=== PATIENT | female | born 1945 | race African-American/Black ===

== ENCOUNTER 2016-04-07 17:42 | Emergency (ER) | payer MEDICARE, MEDICAID ==
[2016-04-07 18:14] LABS: #Basophils 0.1 thou/uL (0.0-0.2); #Eosinphils 0.1 thou/uL (0.0-0.7); #Lymphocytes 1.2 thou/uL (1.20-3.40); #Monocytes 0.5 thou/uL (0.11-0.59); #Neutrophils 8.5 thou/uL (1.40-6.50); %Basophils 0.5 % (0.0-1.0); %Eosinophils 0.9 % (0.0-10.0); %Monocytes 4.8 % (0.0-10.0); Hematocrit 34.9 % (36.0-47.0); Mean Platelet Volume 7.9 fL (7.4-10.4); Red Blood Cell (RBC) Count 4.39 mill/uL (4.20-5.40); White Blood Cell (WBC) Count 10.3 thou/uL (4.8-10.8)
[2016-04-07 18:21] LABS: ALT (SGPT) 13 U/L (0-55); AST (SGOT) 19 U/L (5-34); Alkaline Phosphatase 76 U/L (40-150); Anion Gap 17 mmol/L (10-20); Anisocytosis SLIGHT = 6-15 cells (100X) (0-5/hpf); BUN (Urea Nitrogen) 26 mg/dL (9.8-20.1); Bilirubin, Total 1.2 mg/dL (0.2-1.2); Calc. Creatinine Clearance 0 mL/min (70-130); Calcium 6.5 mg/dL (7.8-10.44); Carbon Dioxide 24 mmol/L (23-31); Chloride 104 mmol/L (98-107); Estimated GFR-MDRD 45; Globulin 3.8 g/dL (2.4-3.5); Poikilocytosis SLIGHT = 6-15 cells (100X) (0-5/hpf)
[2016-04-07 18:24] LABS: Troponin I 0.102 ng/mL (< 0.028)
[2016-04-07] MEDS ORDERED: Furosemide 100 MG/10 ML VIAL ONE (18:36)
[2016-04-07 19:10] LABS: Bilirubin Negative (Negative); Blood, Urine Trace (Negative); Glucose, Urine (Dipstick) Negative (Negative); Ketone, Urine Negative (Negative); Nitrite Positive (Negative); Protein, Urine (Dipstick) > or equal to 300 mg/dL (Neg-Trace)
[2016-04-07] MEDS ORDERED: Sodium Chloride 0.9% 100 ML ONE (19:22)
[2016-04-07] MEDS ORDERED: cefTRIAXone\\ROCEPHIN 1 GM VIAL ONE (19:22)
[2016-04-07 19:41] LABS: Bacteria/HPF 4+ HPF (None Seen); RBC/HPF 0-3 HPF (0-3); Squamous Epithelial 0-3 HPF (0-3); Transitional Epithelial 0-3 HPF (0-3)
[2016-04-07] MEDS ORDERED: Potassium Chloride 20 MEQ TAB ONE (19:51)
--- NOTE | 2016-04-07 21:10 | RAD ---
PORTABLE CHEST 04/07/16 An AP portable film at 1752 is compared with a 09/18/15 study. The heart is mildly enlarged. There is some mild congestion of the vessels and bilateral pleural eff usions. The findings suggest congestive heart failure. There is some relative increased density in t he left base which is probably all fluid, but a superimposed infiltrate could not be excluded. IMPRESSION: CHF. POS: HOME
== END 2016-04-07 19:55 | disposition short-term general hospital (02) ==
LOC: BURERS 17:42
DX: I50.9 Heart failure, unspecified (principal); E87.6 Hypokalemia; E78.5 Hyperlipidemia, unspecified; E11.9 Type 2 diabetes mellitus without complications; K21.9 Gastro-esophageal reflux disease without esophagitis; E78.00 Pure hypercholesterolemia, unspecified; I10 Essential (primary) hypertension; Z79.82 Long term (current) use of aspirin; Z79.899 Other long term (current) drug therapy
CPT/HCPCS: 51702; 71010; 80053; 81003; 81015; 82553; 83880; 84484; 85025; 87077; 87086; 87186; 93005; 94760; 96374; 96375; J0696; J1940; J7050

== ENCOUNTER 2016-10-17 16:53 | Emergency (ER) | payer MEDICARE, MEDICAID ==
[2016-10-17] MEDS ORDERED: Benzonatate 100 MG CAP ONE (18:21)
[2016-10-17] MEDS ORDERED: Azithromycin 250 MG TAB ONE (18:21)
--- NOTE | 2016-10-17 21:36 | RAD ---
CHEST TWO VIEWS 10/17/16 Comparison is made with prior studies dated 04/18/16 and 04/07/16. There is a streaky infiltrate in the right base adjacent to the diaphragm. This may represent an ear ly pneumonia. It is difficult to asses the left base. The heart is enlarged but no more so than befo re. I do not feel the vessel are congested at the moment. The AICD remains in place. IMPRESSION: Right basilar infiltrate. Code T POS: HOME
== END 2016-10-17 18:25 | disposition home or self-care (01) ==
LOC: BURERS 16:53
DX: J40 Bronchitis, not specified as acute or chronic (principal); I11.0 Hypertensive heart disease with heart failure; I50.9 Heart failure, unspecified; E11.9 Type 2 diabetes mellitus without complications; K21.9 Gastro-esophageal reflux disease without esophagitis; E78.5 Hyperlipidemia, unspecified; Z79.891 Long term (current) use of opiate analgesic; Z79.899 Other long term (current) drug therapy; Z79.82 Long term (current) use of aspirin
CPT/HCPCS: 71020

== ENCOUNTER 2017-02-08 14:32 | Emergency (ER) | payer MEDICARE, MEDICAID ==
--- NOTE | 2017-02-08 15:39 | RAD ---
PORTABLE CHEST: 02/08/17 HISTORY: Chest pain. COMPARISON: 04/18/16 exam. The heart size is enlarged. Pacemaker is present. There is increased interstitial changes in the base s consistent with some atelectasis. Given the differences in technique, I do not appreciate that ther e is a definite interval change since the prior exam. IMPRESSION: Cardiomegaly with some bibasilar lung change which appears fairly stable as compared to the previous 04/18/16 study. POS: ОЛЬГА
[2017-02-08 15:49] LABS: #Basophils 0.1 thou/uL (0.0-0.2); #Eosinphils 0.1 thou/uL (0.0-0.7); #Lymphocytes 1.5 thou/uL (1.20-3.40); #Monocytes 0.5 thou/uL (0.11-0.59); #Neutrophils 6.4 thou/uL (1.40-6.50); %Basophils 0.8 % (0.0-1.0); %Eosinophils 1.3 % (0.0-10.0); %Lymphocytes 17.3 % (21.0-51.0); %Monocytes 5.4 % (0.0-10.0); %Neutrophils 75.2 % (42.0-75.0); Mean Corpuscular HGB CONC 30.9 g/dL (32.0-36.0); Mean Corpuscular Hemoglobin 26.6 pg (27.0-31.0); Mean Corpuscular Volume 86.2 fl (81.0-99.0); Platelet Count 174 thou/uL (130-400); RBC Distribution Width 16.8 % (11.5-14.5); Red Blood Cell (RBC) Count 4.51 mill/uL (4.20-5.40); White Blood Cell (WBC) Count 8.5 thou/uL (4.8-10.8)
[2017-02-08 15:53] LABS: Bilirubin Negative (Negative); Blood, Urine Trace (Negative); Clarity Cloudy (Clear); Glucose, Urine (Dipstick) Negative (Negative); Leukocyte Moderate (Negative); Nitrite Negative (Negative); Protein, Urine (Dipstick) > or equal to 300 mg/dL (Neg-Trace); Specific Gravity, Urine 1.025 (1.005-1.030); Urobilinogen 0.2 mg/dL (0.2-1.0)
[2017-02-08 15:58] LABS: RBC/HPF 0-3 HPF (0-3)
[2017-02-08 15:59] LABS: Bacteria/HPF 3+ HPF (None Seen); Renal Epithelial 0-3 HPF (0-3)
[2017-02-08 16:01] LABS: Other Casts/LPF 0-3 COARSE GRAN LPF (0-3 Hyaline)
[2017-02-08 16:05] LABS: ALT (SGPT) 27 U/L (8-55); AST (SGOT) 26 U/L (5-34); Albumin 3.7 g/dL (3.4-4.8); Alkaline Phosphatase 86 U/L (40-150); Anion Gap 16 mmol/L (10-20); BUN (Urea Nitrogen) 24 mg/dL (9.8-20.1); Bilirubin, Total 0.6 mg/dL (0.2-1.2); Calc. Creatinine Clearance 0 mL/min (70-130); Calcium 9.1 mg/dL (7.8-10.44); Carbon Dioxide 19 mmol/L (23-31); Chloride 110 mmol/L (98-107); Estimated GFR-MDRD 42; Globulin 3.6 g/dL (2.4-3.5); Glucose 112 mg/dL (80-115); Lipase 26 U/L (8-78); Potassium 4.3 mmol/L (3.5-5.1); Protein, Total 7.3 g/dL (6.0-8.3); Sodium 141 mmol/L (136-145)
[2017-02-08 16:06] LABS: CKMB 1.3 ng/mL (0-6.6); Troponin I 0.046 ng/mL (< 0.028)
[2017-02-08] MEDS ORDERED: Furosemide 40 MG/4 ML VIAL ONE (16:48)
[2017-02-08] MEDS ORDERED: Nitroglycerin 2% Ointment 1 INCH/1 GM Packet ONE (16:48)
[2017-02-08] MEDS ORDERED: cefTRIAXone\\ROCEPHIN 2 GM VIAL ONE (17:15)
== END 2017-02-08 17:25 | disposition short-term general hospital (02) ==
LOC: BURERS 14:32
DX: I11.0 Hypertensive heart disease with heart failure (principal); I50.9 Heart failure, unspecified; R10.13 Epigastric pain; N39.0 Urinary tract infection, site not specified; E11.9 Type 2 diabetes mellitus without complications; K21.9 Gastro-esophageal reflux disease without esophagitis; E78.5 Hyperlipidemia, unspecified; Z79.891 Long term (current) use of opiate analgesic; Z79.82 Long term (current) use of aspirin; Z79.899 Other long term (current) drug therapy
CPT/HCPCS: 36415; 71010; 80053; 81003; 81015; 82553; 83690; 83880; 84484; 85025; 93005; 94760; 96374; 96375; J0696; J1940

== ENCOUNTER 2017-04-09 11:25 | Emergency (ER) | payer MEDICARE, MEDICAID | END 2017-04-09 11:47 | disposition home or self-care (01) | LOC: BURERS 11:25 | DX: M75.91 Shoulder lesion, unspecified, right shoulder (principal); I11.0 Hypertensive heart disease with heart failure; I50.9 Heart failure, unspecified; E11.9 Type 2 diabetes mellitus without complications; K21.9 Gastro-esophageal reflux disease without esophagitis; E78.5 Hyperlipidemia, unspecified; Z79.899 Other long term (current) drug therapy | CPT/HCPCS: 99283 ==

== ENCOUNTER 2017-05-01 16:12 | Emergency (ER) | payer MEDICARE ==
[2017-05-01 16:32] LABS: #Eosinphils 0.1 thou/uL (0.0-0.7); #Lymphocytes 1.3 thou/uL (1.20-3.40); #Monocytes 0.3 thou/uL (0.11-0.59); #Neutrophils 6.6 thou/uL (1.40-6.50); %Basophils 0.6 % (0.0-1.0); %Eosinophils 0.8 % (0.0-10.0); %Lymphocytes 15.7 % (21.0-51.0); Hemoglobin 10.3 g/dL (12.0-16.0); Mean Corpuscular HGB CONC 31.8 g/dL (32.0-36.0); Mean Corpuscular Hemoglobin 26.7 pg (27.0-31.0); Mean Corpuscular Volume 83.8 fl (81.0-99.0); Platelet Count 207 thou/uL (130-400); RBC Distribution Width 17.2 % (11.5-14.5); Red Blood Cell (RBC) Count 3.88 mill/uL (4.20-5.40); White Blood Cell (WBC) Count 8.4 thou/uL (4.8-10.8)
[2017-05-01 16:54] LABS: ALT (SGPT) 8 U/L (8-55); AST (SGOT) 12 U/L (5-34); Albumin 3.3 g/dL (3.4-4.8); Alkaline Phosphatase 72 U/L (40-150); Anion Gap 19 mmol/L (10-20); BUN (Urea Nitrogen) 25 mg/dL (9.8-20.1); Calc. Creatinine Clearance 0 mL/min (70-130); Calcium 8.1 mg/dL (7.8-10.44); Carbon Dioxide 25 mmol/L (23-31); Chloride 104 mmol/L (98-107); Estimated GFR-MDRD 43; Globulin 3.7 g/dL (2.4-3.5); Glucose 177 mg/dL (80-115); Sodium 145 mmol/L (136-145)
[2017-05-01 16:55] LABS: CKMB 0.7 ng/mL (0-6.6); Troponin I 0.055 ng/mL (< 0.028)
[2017-05-01] MEDS ORDERED: Furosemide 40 MG/4 ML VIAL ONE ×2 (17:47→17:48)
--- NOTE | 2017-05-01 21:17 | RAD ---
PORTABLE CHEST: 05/01/17 An AP portable film at 1614 is compared with a 03/21/17 study. Cardiomegaly is about the same as before. There is some basilar interstitial scarring in the right anais ng base. I cannot assess the left lung base on this portable study and cannot rule in or out patholog y here. An AICD is in place. While there is slight prominence of the vessels, it is not sufficient to confidently diagnose heart failure. IMPRESSION: Cardiomegaly and basilar interstitial changes, particularly on the right. POS: HOME
== END 2017-05-01 19:15 | disposition short-term general hospital (02) ==
LOC: BURERS 16:12
DX: I11.0 Hypertensive heart disease with heart failure (principal); I50.9 Heart failure, unspecified; E87.6 Hypokalemia; D50.9 Iron deficiency anemia, unspecified; E11.9 Type 2 diabetes mellitus without complications; K21.9 Gastro-esophageal reflux disease without esophagitis; E78.5 Hyperlipidemia, unspecified; Z79.899 Other long term (current) drug therapy
CPT/HCPCS: 71045; 82553; 83880; 84484; 85025; 93005; 94760; 96374; J1940

== ENCOUNTER 2017-07-23 21:00 | Emergency (ER) | payer MEDICARE ==
[2017-07-23 22:17] LABS: CKMB 1.1 ng/mL (0-6.6)
[2017-07-23 22:21] LABS: #Basophils 0.1 thou/uL (0.0-0.2); #Eosinphils 0.1 thou/uL (0.0-0.7); #Lymphocytes 1.9 thou/uL (1.20-3.40); #Monocytes 0.6 thou/uL (0.11-0.59); #Neutrophils 6.5 thou/uL (1.40-6.50); %Basophils 0.8 % (0.0-1.0); %Eosinophils 1.5 % (0.0-10.0); %Lymphocytes 21.1 % (21.0-51.0); %Neutrophils 70.6 % (42.0-75.0); Mean Corpuscular HGB CONC 31.7 g/dL (32.0-36.0); Mean Corpuscular Hemoglobin 24.9 pg (27.0-31.0); Mean Corpuscular Volume 78.5 fl (81.0-99.0); Mean Platelet Volume 7.1 fL (7.4-10.4); Platelet Count 229 thou/uL (130-400); RBC Distribution Width 19.4 % (11.5-14.5); Red Blood Cell (RBC) Count 3.62 mill/uL (4.20-5.40); White Blood Cell (WBC) Count 9.1 thou/uL (4.8-10.8)
[2017-07-23 22:23] LABS: Anisocytosis SLIGHT = 6-15 cells (100X) (0-5/hpf); Burr Cells SLIGHT = 2-5 cells (100X) (0-1/hpf); Microcytosis SLIGHT = 6-15 cells (100X) (0-5/hpf); Ovalocytes SLIGHT = 2-5 cells (100X) (0-1/hpf); Poikilocytosis SLIGHT = 6-15 cells (100X) (0-5/hpf); Schistocytes SLIGHT = 2-5 cells (100X) (0-1/hpf)
[2017-07-23 22:24] LABS: PLT Morphology Comment Appears Adequate
[2017-07-23 22:29] LABS: Anion Gap 20 mmol/L (10-20); BUN (Urea Nitrogen) 60 mg/dL (9.8-20.1); Calc. Creatinine Clearance 0 mL/min (70-130); Carbon Dioxide 17 mmol/L (23-31); Chloride 113 mmol/L (98-107); Estimated GFR-MDRD 26; Glucose 100 mg/dL (80-115); Potassium 3.2 mmol/L (3.5-5.1); Sodium 147 mmol/L (136-145)
[2017-07-23 22:31] LABS: Calcium 5.7 mg/dL (7.8-10.44)
[2017-07-23] MEDS ORDERED: Furosemide 40 MG/4 ML VIAL ONE (22:36)
[2017-07-23] MEDS ORDERED: Potassium Chloride 20 MEQ TAB ONE (22:52)
[2017-07-24 03:34] LABS: MDiff Complete? YES
--- NOTE | 2017-07-24 07:09 | RAD ---
PORTABLE CHEST: DATE: 07/23/17. FINDINGS: An AP portable film at 2231 is compared with a 05/01/17 study. Moderate cardiomegaly is about the same as before. An AICD is in place. There is no congestive laird ge. The left base is not seen well on this portable film, so I cannot comment on any pathology there or not. There is a little haziness in the right base. I cannot tell if this is an early infiltrate or just atelectasis. This area may need followup. IMPRESSION: 1. Cardiomegaly without congestive heart failure. 2. Mild right basilar haziness. See discussion above. Followup may be needed. POS: HOME
== END 2017-07-23 23:37 | disposition short-term general hospital (02) ==
LOC: BURERS 21:00
DX: E87.6 Hypokalemia (principal); I13.0 Hypertensive heart and chronic kidney disease with heart failure and stage 1 through stage 4 chronic kidney disease, or unspecified chronic kidney disease; I50.9 Heart failure, unspecified; N18.9 Chronic kidney disease, unspecified; E11.22 Type 2 diabetes mellitus with diabetic chronic kidney disease; E83.42 Hypomagnesemia; D50.0 Iron deficiency anemia secondary to blood loss (chronic); K21.9 Gastro-esophageal reflux disease without esophagitis; E78.5 Hyperlipidemia, unspecified
CPT/HCPCS: 36415; 71045; 82553; 83735; 83880; 84484; 85025; 93005; 96374; J1940

== ENCOUNTER 2017-10-27 22:31 | Emergency (ER) | payer MEDICARE ==
[2017-10-27 23:13] LABS: CKMB 2.4 ng/mL (0-6.6); Troponin I 0.072 ng/mL (< 0.028)
[2017-10-27 23:28] LABS: #Basophils 0.1 thou/uL (0.0-0.2); #Eosinphils 0.1 thou/uL (0.0-0.7); #Lymphocytes 1.2 thou/uL (1.20-3.40); #Monocytes 0.5 thou/uL (0.11-0.59); #Neutrophils 5.8 thou/uL (1.40-6.50); %Basophils 0.9 % (0.0-1.0); %Eosinophils 0.9 % (0.0-10.0); %Lymphocytes 16.2 % (21.0-51.0); Mean Corpuscular HGB CONC 30.4 g/dL (32.0-36.0); Mean Corpuscular Hemoglobin 25.2 pg (27.0-31.0); Mean Corpuscular Volume 82.9 fL (78.0-98.0); Mean Platelet Volume 9.9 fL (7.4-10.4); Platelet Count 134 thou/uL (130-400); Red Blood Cell (RBC) Count 5.18 mill/uL (4.20-5.40); White Blood Cell (WBC) Count 7.6 thou/uL (4.8-10.8)
[2017-10-27 23:39] LABS: Bilirubin Negative (Negative); Blood, Urine Negative (Negative); Clarity Slightly Cloudy (Clear); Glucose, Urine (Dipstick) Negative (Negative); Leukocyte Negative (Negative); Nitrite Negative (Negative); Protein, Urine (Dipstick) Trace mg/dL (Neg-Trace); Urobilinogen 0.2 mg/dL (0.2-1.0)
[2017-10-27 23:55] LABS: ALT (SGPT) 20 U/L (8-55); AST (SGOT) 28 U/L (5-34); Albumin 3.7 g/dL (3.4-4.8); Alkaline Phosphatase 92 U/L (40-150); BUN (Urea Nitrogen) 146 mg/dL (9.8-20.1); Bilirubin, Total 0.8 mg/dL (0.2-1.2); Calc. Creatinine Clearance 0 mL/min (70-130); Calcium 7.1 mg/dL (7.8-10.44); Carbon Dioxide Less than 8 mmol/L (23-31); Chloride 114 mmol/L (98-107); Estimated GFR-MDRD 10; Globulin 4.2 g/dL (2.4-3.5); Glucose 135 mg/dL (80-115); Potassium 4.7 mmol/L (3.5-5.1); Protein, Total 7.9 g/dL (6.0-8.3); Sodium 145 mmol/L (136-145)
[2017-10-27] MEDS ORDERED: Furosemide 100 MG/10 ML VIAL ONE (23:59)
--- NOTE | 2017-10-28 11:41 | RAD ---
PORTABLE CHEST: DATE: 10/27/17. COMPARISON: Comparison is made with a 07/23/17 study. FINDINGS: This portable film at 2321 continues to show cardiomegaly to about the same degree. There are no marta ar congestive changes. An AICD is in place. There is streaking in the right lung base, but there wa s before, so it is unknown if this is just chronic or not. One could argue that the right hilum is a little prominent, but the patient is turned to the side which would make it look so. The left base is difficult to see well on this portable study. Overall, my sense is there has been little or no ch brown since July. IMPRESSION: Cardiomegaly and chronic changes. POS: HOME
== END 2017-10-28 00:35 | disposition home or self-care (01) ==
LOC: BURERS 22:31
DX: I11.0 Hypertensive heart disease with heart failure (principal); I50.9 Heart failure, unspecified; E11.649 Type 2 diabetes mellitus with hypoglycemia without coma; N17.9 Acute kidney failure, unspecified; K21.9 Gastro-esophageal reflux disease without esophagitis; E78.5 Hyperlipidemia, unspecified; Z79.899 Other long term (current) drug therapy; Z79.82 Long term (current) use of aspirin
CPT/HCPCS: 36416; 51702; 71045; 80053; 81003; 82553; 83880; 84484; 85025; 87040; 87086; 93005; 94760; 96374; 36415-59; A4353; J1940

== ENCOUNTER 2017-11-10 13:51 | Inpatient (IN) | payer MEDICARE ==
--- NOTE | 2017-11-10 18:04 | HP ---
REASON FOR TRANSFER: Diffuse debilitation and weakness. BRIEF SUMMARY HISTORY OF PRESENT ILLNESS: Patient is a 72-year-old -[place] female who was a dmitted to [facility] 10/28/2017, after having acute renal failure with second summer acute on chronic congestive heart failure. The patient has a history of ejection fraction of 20% -25% and previously had chronic renal disease stage 3 with cardiomyopathy. The patient's hospital co [facility] was complicated by worsening of her renal failure requiring acute dialysis. The pat ient had at least 1 code blue during hospitalization as well as ICU care. The patient did begin to i mprove. Renal functions improved to the point where she did not need further dialysis and she was tr ansferred to the floor. She was found to be extremely weak and debilitated, having difficulty ambula ting and was appropriate for continued physical and occupational therapy [facility] PAST MEDICAL HISTORY: The patient has history of type 2 diabetes mellitus, history of hyperlipidemia , history of hypertension, history of chronic microcytic anemia History of gastroesophageal reflux d isease, history of cardiomyopathy with ejection fraction of approximately 20%, history of previous ch ronic renal disease with acute on chronic renal failure during hospitalization. Patient also has a h istory of congestive heart failure and history of AV node reentry tachycardia. The patient does have a cardiac pacemaker and prior evaluations by Cardiology during her acute stay, she had no recurrent atrial fibrillation and thus does not need anticoagulation. CURRENT MEDICATIONS: At the time of her admission to [facility], she was on a spirin 81 mg daily, Protonix, furosemide 40 mg daily, tramadol p.r.n. pain, allopurinol 100 mg daily, carvedilol 25 mg b.i.d., Crestor 10 mg daily, prednisolone ophthalmic drops, diclofenac sodium daily p.r.n. pain, spironolactone 25 mg daily, glyburide 2.5 mg daily, gabapentin 100 mg t.i.d., amlodipin e 5 mg daily, potassium chloride daily. ALLERGIES: The patient is allergic to SHELLFISH. PAST SURGICAL HISTORY: She had eye surgery and a pacemaker placement in 2016. FAMILY HISTORY: Noncontributory. SOCIAL HISTORY: No significant history of alcohol, smoking, or social drug use. Patient lives in [facility] and does have family who live close by. She had previously been fairly independent i n activities of daily living. This will have to be reevaluated after she continues to rehabilitate. REVIEW OF SYSTEMS: Presently, the patient reports her appetite is slowly improving. Denies any naus ea, no vomiting, no recent visual changes, no sore throat reported. No chest pain or shortness of br eath, no fevers, chills or night sweats. No dysuria, hematuria or change in urinary frequency. The patient denies any abdominal pain. The patient reports no recent rashes, no significant back pain or joint pain. The patient denies depression. PHYSICAL EXAMINATION: VITAL SIGNS: Blood pressure 105/70, respiratory rate 16, pulse was 82, temperature 98.5, and afebril e. GENERAL: -[place] female, tired appearing, but alert and oriented x3, in no obvious distress . HEENT: Extraocular movements are intact. Oropharynx, mucous membranes are moist. NECK: Supple, no masses palpated. CHEST: Clear to auscultation bilaterally. HEART: Regular rate and rhythm. ABDOMEN: Flat, soft, nontender, nondistended, no masses were palpated. SKIN: No rashes or lesions. Trace edema at the ankles bilaterally. BACK: No CVA or vertebral tenderness. ASSESSMENT AND PLAN: 1. Status post acute on chronic congestive heart failure secondary to hepatorenal syndrome with acut e renal failure. The patient will be followed. Fluid status will be followed as well for any signs of worsening of her congestive heart failure. 2. Acute renal failure with history of stage 3 renal disease. The patient is followed by Dr. Laura moreno, Nephrology who has ordered some repeat blood test and will follow her in the swing bed in the outp atient basis as needed. 3. History of arrhythmia. The patient has a pacemaker. No signs of atrial fibrillation at this eunice e and per Cardiology, does not recommend anticoagulation. 4. Generalized weakness as above. The patient will undergo physical and occupational therapy. Hope fully, she will transition to the point where she can continue to live independently at home. Otherw ise, we will have to consider long-term placement.
[2017-11-10] MEDS ORDERED: Bisacodyl 5 MG TAB PO PRN (21:33)
[2017-11-10] MEDS ORDERED: traMADol HCl 50 MG TAB PO PRN (21:33)
[2017-11-10] MEDS ORDERED: Milk Of Magnesia 30 ML UDCUP PO PRN (21:33)
[2017-11-10] MEDS ORDERED: Carvedilol 3.125 MG TAB PO SCH (22:00)
[2017-11-10] MEDS ORDERED: Amiodarone 200 MG TAB PO SCH (22:00)
[2017-11-11 06:01] LABS: Anion Gap 19 mmol/L (10-20); BUN (Urea Nitrogen) 52 mg/dL (9.8-20.1); Calc. Creatinine Clearance 32 mL/min (70-130); Calcium 9.3 mg/dL (7.8-10.44); Carbon Dioxide 19 mmol/L (23-31); Chloride 101 mmol/L (98-107); Estimated GFR-MDRD 34; Glucose 71 mg/dL (80-115); Potassium 4.2 mmol/L (3.5-5.1); Sodium 135 mmol/L (136-145)
[2017-11-11] MEDS ORDERED: Acetaminophen 325 MG TAB ONE ×2 (08:53)
[2017-11-11] MEDS: Acetaminophen 325 MG TAB PO PRN (09:21)
[2017-11-11] MEDS: Allopurinol 100 MG TAB PO SCH (09:21)
[2017-11-11] MEDS: Rosuvastatin 10 MG TAB PO SCH (09:21)
[2017-11-11] MEDS: Furosemide 40 MG TAB PO SCH ×2 (09:21→13:16)
[2017-11-11] MEDS: Carvedilol 3.125 MG TAB PO SCH ×2 (09:21→21:20)
[2017-11-11] MEDS: Famotidine 20 MG TAB PO SCH (09:21)
[2017-11-11] MEDS: Amiodarone 200 MG TAB PO SCH ×2 (09:22→21:20)
[2017-11-11 15:18] LABS: Phosphorus 2.9 mg/dL (2.3-4.7)
[2017-11-12] MEDS: Carvedilol 3.125 MG TAB PO SCH ×2 (09:28→21:22)
[2017-11-12] MEDS: Famotidine 20 MG TAB PO SCH (09:28)
[2017-11-12] MEDS: Furosemide 40 MG TAB PO SCH ×2 (09:28→13:23)
[2017-11-12] MEDS: Acetaminophen 325 MG TAB PO PRN ×2 (09:29→14:55)
[2017-11-12] MEDS: Rosuvastatin 10 MG TAB PO SCH (09:29)
[2017-11-12] MEDS: Allopurinol 100 MG TAB PO SCH (09:29)
[2017-11-12] MEDS: Amiodarone 200 MG TAB PO SCH ×2 (09:29→21:22)
[2017-11-12] MEDS ORDERED: Promethazine DM 6.25-15mg/5ml 120 ML BOT PO PRN (12:52)
[2017-11-12] MEDS: Benzonatate 100 MG CAP PO PRN (16:24)
[2017-11-13] MEDS: Acetaminophen 325 MG TAB PO PRN ×2 (04:46→10:13)
[2017-11-13] MEDS: Saccharomyces boulardii 250 MG CAP PO SCH (10:13)
[2017-11-13] MEDS: Allopurinol 100 MG TAB PO SCH (10:13)
[2017-11-13] MEDS: Carvedilol 3.125 MG TAB PO SCH ×2 (10:13→21:04)
[2017-11-13] MEDS: Amiodarone 200 MG TAB PO SCH ×2 (10:13→21:04)
[2017-11-13] MEDS: Furosemide 40 MG TAB PO SCH ×2 (10:13→14:24)
[2017-11-13] MEDS: Rosuvastatin 10 MG TAB PO SCH (10:14)
[2017-11-13] MEDS: Famotidine 20 MG TAB PO SCH (10:14)
[2017-11-13] MEDS: Benzonatate 100 MG CAP PO PRN (14:24)
[2017-11-14 05:11] LABS: ALT (SGPT) 13 U/L (8-55); AST (SGOT) 22 U/L (5-34); Albumin 3.1 g/dL (3.4-4.8); Alkaline Phosphatase 89 U/L (40-150); Anion Gap 16 mmol/L (10-20); BUN (Urea Nitrogen) 53 mg/dL (9.8-20.1); Bilirubin, Total 0.3 mg/dL (0.2-1.2); Calc. Creatinine Clearance 34 mL/min (70-130); Calcium 8.9 mg/dL (7.8-10.44); Carbon Dioxide 22 mmol/L (23-31); Chloride 105 mmol/L (98-107); Estimated GFR-MDRD 36; Globulin 3.6 g/dL (2.4-3.5); Glucose 90 mg/dL (80-115); Potassium 3.8 mmol/L (3.5-5.1); Protein, Total 6.7 g/dL (6.0-8.3); Sodium 139 mmol/L (136-145)
[2017-11-14 05:36] LABS: #Basophils 0.1 thou/uL (0.0-0.2); #Eosinphils 0.1 thou/uL (0.0-0.7); #Monocytes 0.5 thou/uL (0.11-0.59); #Neutrophils 5.6 thou/uL (1.40-6.50); %Basophils 0.7 % (0.0-1.0); %Eosinophils 1.4 % (0.0-10.0); %Lymphocytes 13.5 % (21.0-51.0); %Monocytes 6.8 % (0.0-10.0); %Neutrophils 77.5 % (42.0-75.0); Acanthocytes MODERATE= 6-15 cells (100X) (None Seen); Anisocytosis MODERATE=16-30 cells (100X) (0-5/hpf); Bite Cells SLIGHT = 2-5 cells (100X) (0-1/hpf); Elliptocytes SLIGHT = 2-5 cells (100X) (0-1/hpf); Hemoglobin 9.6 g/dL (12.0-16.0); Hypochromia SLIGHT = 6-15 cells (100X) (0-5/hpf); MDiff Complete? YES; Mean Corpuscular HGB CONC 29.3 g/dL (32.0-36.0); Mean Corpuscular Hemoglobin 24.3 pg (27.0-31.0); Mean Corpuscular Volume 82.8 fL (78.0-98.0); Mean Platelet Volume 8.9 fL (7.4-10.4); Ovalocytes MODERATE= 6-15 cells (100X) (0-1/hpf); PLT Morphology Comment Appears Adequate; Platelet Count 252 thou/uL (130-400); RBC Distribution Width 19.4 % (11.5-14.5); Red Blood Cell (RBC) Count 3.96 mill/uL (4.20-5.40); Schistocytes SLIGHT = 2-5 cells (100X) (0-1/hpf); White Blood Cell (WBC) Count 7.3 thou/uL (4.8-10.8)
[2017-11-14] MEDS: Allopurinol 100 MG TAB PO SCH (09:03)
[2017-11-14] MEDS: Rosuvastatin 10 MG TAB PO SCH (09:03)
[2017-11-14] MEDS: Amiodarone 200 MG TAB PO SCH ×2 (09:03→20:20)
[2017-11-14] MEDS: Furosemide 40 MG TAB PO SCH ×2 (09:04→13:51)
[2017-11-14] MEDS: Famotidine 20 MG TAB PO SCH (09:04)
[2017-11-14] MEDS: Saccharomyces boulardii 250 MG CAP PO SCH (09:04)
[2017-11-14] MEDS: Carvedilol 3.125 MG TAB PO SCH ×2 (09:04→20:20)
[2017-11-14] MEDS: traMADol HCl 50 MG TAB PO PRN (09:12)
[2017-11-14] MEDS ORDERED: Loperamide HCl 2 MG CAP PO PRN (16:25)
[2017-11-15] MEDS: Amiodarone 200 MG TAB PO SCH ×2 (08:39→21:04)
[2017-11-15] MEDS: Megestrol Acetate 400 MG/10 ML UDCUP PO SCH (08:39)
[2017-11-15] MEDS: Rosuvastatin 10 MG TAB PO SCH (08:39)
[2017-11-15] MEDS: Famotidine 20 MG TAB PO SCH (08:40)
[2017-11-15] MEDS: Carvedilol 3.125 MG TAB PO SCH ×2 (08:40→21:05)
[2017-11-15] MEDS: Allopurinol 100 MG TAB PO SCH (08:40)
[2017-11-15] MEDS: Saccharomyces boulardii 250 MG CAP PO SCH (08:40)
[2017-11-15] MEDS: Furosemide 40 MG TAB PO SCH ×2 (08:40→14:25)
[2017-11-16] MEDS: Megestrol Acetate 400 MG/10 ML UDCUP PO SCH (09:35)
[2017-11-16] MEDS: Famotidine 20 MG TAB PO SCH (09:36)
[2017-11-16] MEDS: Carvedilol 3.125 MG TAB PO SCH ×2 (09:36→21:02)
[2017-11-16] MEDS: Rosuvastatin 10 MG TAB PO SCH (09:36)
[2017-11-16] MEDS: Furosemide 40 MG TAB PO SCH ×2 (09:36→13:52)
[2017-11-16] MEDS: Saccharomyces boulardii 250 MG CAP PO SCH (09:36)
[2017-11-16] MEDS: Allopurinol 100 MG TAB PO SCH (09:37)
[2017-11-16] MEDS: Amiodarone 200 MG TAB PO SCH ×2 (09:37→21:02)
[2017-11-17] MEDS: traMADol HCl 50 MG TAB PO PRN (06:09)
[2017-11-17] MEDS: Megestrol Acetate 400 MG/10 ML UDCUP PO SCH (08:23)
[2017-11-17] MEDS: Amiodarone 200 MG TAB PO SCH ×2 (08:23→21:06)
[2017-11-17] MEDS: Saccharomyces boulardii 250 MG CAP PO SCH (08:23)
[2017-11-17] MEDS: Famotidine 20 MG TAB PO SCH (08:23)
[2017-11-17] MEDS: Allopurinol 100 MG TAB PO SCH (08:24)
[2017-11-17] MEDS: Carvedilol 3.125 MG TAB PO SCH ×2 (08:24→21:06)
[2017-11-17] MEDS: Rosuvastatin 10 MG TAB PO SCH (08:24)
[2017-11-17] MEDS: Furosemide 40 MG TAB PO SCH ×2 (08:24→13:46)
[2017-11-18] MEDS: Famotidine 20 MG TAB PO SCH (08:19)
[2017-11-18] MEDS: Rosuvastatin 10 MG TAB PO SCH (08:19)
[2017-11-18] MEDS: Megestrol Acetate 400 MG/10 ML UDCUP PO SCH (08:19)
[2017-11-18] MEDS: Allopurinol 100 MG TAB PO SCH (08:20)
[2017-11-18] MEDS: Furosemide 40 MG TAB PO SCH ×2 (08:20→13:48)
[2017-11-18] MEDS: Saccharomyces boulardii 250 MG CAP PO SCH (08:20)
[2017-11-18] MEDS: Carvedilol 3.125 MG TAB PO SCH ×2 (08:21→19:57)
[2017-11-18] MEDS: Amiodarone 200 MG TAB PO SCH ×2 (08:22→19:57)
[2017-11-18] MEDS: traMADol HCl 50 MG TAB PO PRN (19:57)
[2017-11-19] MEDS: Amiodarone 200 MG TAB PO SCH ×2 (08:54→20:09)
[2017-11-19] MEDS: Allopurinol 100 MG TAB PO SCH (08:54)
[2017-11-19] MEDS: Famotidine 20 MG TAB PO SCH (08:55)
[2017-11-19] MEDS: Carvedilol 3.125 MG TAB PO SCH ×2 (08:55→20:09)
[2017-11-19] MEDS: Megestrol Acetate 400 MG/10 ML UDCUP PO SCH (08:55)
[2017-11-19] MEDS: Furosemide 40 MG TAB PO SCH ×2 (08:55→13:24)
[2017-11-19] MEDS: Saccharomyces boulardii 250 MG CAP PO SCH (08:56)
[2017-11-19] MEDS: Rosuvastatin 10 MG TAB PO SCH (08:56)
[2017-11-19] MEDS ORDERED: Ondansetron ODT 4 MG TAB PO PRN (15:26)
[2017-11-20] MEDS: Megestrol Acetate 400 MG/10 ML UDCUP PO SCH (08:46)
[2017-11-20] MEDS: Famotidine 20 MG TAB PO SCH (08:48)
[2017-11-20] MEDS: Carvedilol 3.125 MG TAB PO SCH ×2 (08:48→19:55)
[2017-11-20] MEDS: Allopurinol 100 MG TAB PO SCH (08:48)
[2017-11-20] MEDS: Rosuvastatin 10 MG TAB PO SCH (08:48)
[2017-11-20] MEDS: Furosemide 40 MG TAB PO SCH ×2 (08:49→14:37)
[2017-11-20] MEDS: Saccharomyces boulardii 250 MG CAP PO SCH (08:49)
[2017-11-20] MEDS: Amiodarone 200 MG TAB PO SCH ×2 (08:49→19:55)
[2017-11-21] MEDS: Acetaminophen 325 MG TAB PO PRN (01:33)
[2017-11-21] MEDS: Megestrol Acetate 400 MG/10 ML UDCUP PO SCH (08:36)
[2017-11-21] MEDS: Furosemide 40 MG TAB PO SCH ×2 (08:37→14:42)
[2017-11-21] MEDS: Rosuvastatin 10 MG TAB PO SCH (08:37)
[2017-11-21] MEDS: Saccharomyces boulardii 250 MG CAP PO SCH (08:37)
[2017-11-21] MEDS: Famotidine 20 MG TAB PO SCH (08:37)
[2017-11-21] MEDS: Carvedilol 3.125 MG TAB PO SCH ×2 (08:37→20:12)
[2017-11-21] MEDS: Allopurinol 100 MG TAB PO SCH (08:37)
[2017-11-21] MEDS: Amiodarone 200 MG TAB PO SCH ×2 (08:37→20:12)
[2017-11-22] MEDS: Amiodarone 200 MG TAB PO SCH ×2 (10:13→20:49)
[2017-11-22] MEDS: Famotidine 20 MG TAB PO SCH (10:13)
[2017-11-22] MEDS: Allopurinol 100 MG TAB PO SCH (10:13)
[2017-11-22] MEDS: Furosemide 40 MG TAB PO SCH ×2 (10:13→16:11)
[2017-11-22] MEDS: Megestrol Acetate 400 MG/10 ML UDCUP PO SCH (10:13)
[2017-11-22] MEDS: Carvedilol 3.125 MG TAB PO SCH ×2 (10:14→20:49)
[2017-11-22] MEDS: Rosuvastatin 10 MG TAB PO SCH (10:14)
[2017-11-22] MEDS: Saccharomyces boulardii 250 MG CAP PO SCH (10:14)
[2017-11-22 19:54] VITALS: BMI 27.2
[2017-11-23 06:09] VITALS: BP 102/67; TEMP 98.2
[2017-11-23] MEDS: Allopurinol 100 MG TAB PO SCH (09:01)
[2017-11-23] MEDS: Famotidine 20 MG TAB PO SCH (09:01)
[2017-11-23] MEDS: Amiodarone 200 MG TAB PO SCH (09:01)
[2017-11-23] MEDS: Rosuvastatin 10 MG TAB PO SCH (09:01)
[2017-11-23] MEDS: Saccharomyces boulardii 250 MG CAP PO SCH (09:01)
[2017-11-23] MEDS: Furosemide 40 MG TAB PO SCH (09:01)
[2017-11-23] MEDS: Carvedilol 3.125 MG TAB PO SCH (09:01)
[2017-11-23] MEDS: Megestrol Acetate 400 MG/10 ML UDCUP PO SCH (09:05)
--- NOTE | 2017-11-23 13:20 | DIS ---
DATE OF ADMISSION: 11/12/2017 DATE OF DISCHARGE: 11/23/2017 DISCHARGE DIAGNOSES: Physical deconditioning, chronic right-sided heart failure , chronic kidney disease stage 3, hypertension, hyperlipidemia and diarrhea. PROCEDURES: None. HOSPITAL COURSE: A 72-year-old female, transitioned from [facility] in [place] to our facility to participate in skilled care with Physical Therapy and Occupational Therapy after being treated for acute on chronic congestive heart failure exacerbation and secondarily for acute renal failure. Renal failure was sufficient enough to require acute dialysis during her stay in [place]; however, the patient's renal function returned back to her baseline, chronic kidney disease stage 3, and she was subsequently discharged to our facility for the aforementioned skilled care. The patient remained euvolemic throughout her stay with daily weight checks. She gradually improved with working with PT/OT. She typically lives at home alone, however, has decided to transition to live with her son locally. Further, she has agreed to continue her physical therapy with [facility]. During her stay, she was treated for diarrhea, which subsided with taking probiotics and Imodium as needed. She is back to her usual baseline and is amenable to discharge to live with her son locally. DISPOSITION: The patient will be discharged home to live with her son and have [facility] for further therapy. She may follow up with myself in the clinic in 1 week. DISCHARGE MEDICATIONS: Include aspirin 81 mg p.o. daily, Protonix 40 mg p.o. daily, Lasix 40 mg p.o. b.i.d., allopurinol 100 mg p.o. daily, amiodarone 200 mg p.o. b.i.d., Coreg 3.125 mg p.o. b.i.d., Crestor 10 mg p.o. at bedtime, tramadol 50 mg p.o. q.6 hours p.r.n. MTDD
== END 2017-11-23 11:48 | disposition home health service (06) | DRG 948 ==
LOC: BURMED 19:54
PROVIDERS: ADMIT Family Medicine; ATTEND Family Medicine
DX: R53.1 Weakness (principal); I42.9 Cardiomyopathy, unspecified; N17.9 Acute kidney failure, unspecified; I13.0 Hypertensive heart and chronic kidney disease with heart failure and stage 1 through stage 4 chronic kidney disease, or unspecified chronic kidney disease; R53.81 Other malaise; E78.5 Hyperlipidemia, unspecified; D63.1 Anemia in chronic kidney disease; D50.9 Iron deficiency anemia, unspecified; K21.9 Gastro-esophageal reflux disease without esophagitis; Z95.0 Presence of cardiac pacemaker; I50.812 Chronic right heart failure; N18.3 Chronic kidney disease, stage 3 (moderate); E11.22 Type 2 diabetes mellitus with diabetic chronic kidney disease; R19.7 Diarrhea, unspecified; E11.649 Type 2 diabetes mellitus with hypoglycemia without coma
CPT/HCPCS: 36415; 36416; 80048; 80053; 83630; 83735; 83880; 84100; 85025; 87045; 87046; 87449; 87899; 94640; G8978-GP-CK; G8979-GP-CJ; J7620; Q0162

== ENCOUNTER 2018-01-18 17:46 | Emergency (ER) | payer MEDICARE ==
[2018-01-18 18:21] LABS: ALT (SGPT) 25 U/L (8-55); AST (SGOT) 27 U/L (5-34); Albumin 3.7 g/dL (3.4-4.8); Alkaline Phosphatase 108 U/L (40-150); Anion Gap 21 mmol/L (10-20); BUN (Urea Nitrogen) 82 mg/dL (9.8-20.1); Bilirubin, Total 1.3 mg/dL (0.2-1.2); Calc. Creatinine Clearance 0 mL/min (70-130); Carbon Dioxide 12 mmol/L (23-31); Chloride 108 mmol/L (98-107); Estimated GFR-MDRD 16; Globulin 4.2 g/dL (2.4-3.5); Glucose 157 mg/dL (80-115); Potassium 6.4 mmol/L (3.5-5.1); Protein, Total 7.9 g/dL (6.0-8.3); Sodium 135 mmol/L (136-145)
[2018-01-18 18:25] LABS: CKMB 2.3 ng/mL (0-6.6); Troponin I 0.117 ng/mL (< 0.028)
[2018-01-18 18:31] LABS: #Basophils 0.1 thou/uL (0.0-0.2); #Lymphocytes 1.6 thou/uL (1.20-3.40); #Monocytes 0.4 thou/uL (0.11-0.59); #Neutrophils 5.6 thou/uL (1.40-6.50); %Basophils 1.1 % (0.0-1.0); %Monocytes 5.7 % (0.0-10.0); %Neutrophils 72.2 % (42.0-75.0); Crenated RBC MODERATE= 6-15 cells (100X) (None Seen); Elliptocytes SLIGHT = 2-5 cells (100X) (0-1/hpf); Hemoglobin 13.1 g/dL (12.0-16.0); MDiff Complete? YES; Macrocytosis SLIGHT = 6-15 cells (100X) (0-5/hpf); Mean Corpuscular HGB CONC 31.9 g/dL (32.0-36.0); Mean Corpuscular Hemoglobin 27.7 pg (27.0-31.0); Mean Corpuscular Volume 86.9 fL (78.0-98.0); Mean Platelet Volume 10.9 fL (7.4-10.4); Platelet Count 209 thou/uL (130-400); Polychromasia SLIGHT = 2-3 cells (100X) (0-2/hpf); RBC Distribution Width 19.7 % (11.5-14.5); Red Blood Cell (RBC) Count 4.74 mill/uL (4.20-5.40); Schistocytes SLIGHT = 2-5 cells (100X) (0-1/hpf); Tear Drops SLIGHT = 2-5 cells (100X) (0-1/hpf); White Blood Cell (WBC) Count 7.8 thou/uL (4.8-10.8)
[2018-01-18 18:40] LABS: Lactic Acid 3.8 mmol/L (0.5-2.2)
[2018-01-18] MEDS ORDERED: Albuterol Sulfate 1.25 MG/3 ML NEB ONE (19:16)
[2018-01-18 19:54] LABS: Bilirubin Negative (Negative); Blood, Urine Small (Negative); Clarity Cloudy (Clear); Glucose, Urine (Dipstick) Negative (Negative); Leukocyte Large (Negative); Nitrite Negative (Negative); Protein, Urine (Dipstick) Negative (Neg-Trace); Specific Gravity, Urine 1.015 (1.005-1.030); Urobilinogen 0.2 mg/dL (0.2-1.0)
[2018-01-18 20:01] LABS: Bacteria/HPF None Seen HPF (None Seen); Crystals/HPF None Seen HPF (Negative); Hyaline Casts/LPF NONE SEEN LPF (0-3 Hyaline); Other Casts/LPF None Seen LPF (0-3 Hyaline); Oval Fat Bodies/HPF None Seen HPF (None Seen); RBC/HPF 0-3 HPF (0-3); Renal Epithelial None Seen HPF (0-3); Sperm/HPF None Seen HPF (None Seen); Squamous Epithelial 0-3 HPF (0-3); Transitional Epithelial NONE SEEN HPF (0-3); Trichomonas/HPF None Seen HPF (None Seen); WBC/HPF 0-3 HPF (0-3); Yeast-All Forms Rare HPF (None Seen)
--- NOTE | 2018-01-18 22:49 | RAD ---
PORTABLE CHEST: 01/18/18 An AP portable film at 1828 is compared with a 11/08/17 study. Moderate cardiomegaly is about the same as before. The mediastinum shows no particular widening or s hift. There is no pulmonary edema or gross congestion. Streaking over the right hemidiaphragm is prob ably atelectasis. It is difficult to assess the left base on this portable study. An AICD remains in place as before. The triple lumen catheter present previously has been removed. IMPRESSION: 1. Moderate cardiomegaly. 2. Right basilar atelectasis. POS: HOME
== END 2018-01-18 19:55 | disposition short-term general hospital (02) ==
LOC: BURERS 17:46
DX: I11.0 Hypertensive heart disease with heart failure (principal); I50.9 Heart failure, unspecified; N19 Unspecified kidney failure; E87.5 Hyperkalemia; E11.9 Type 2 diabetes mellitus without complications; Z79.899 Other long term (current) drug therapy; Z79.82 Long term (current) use of aspirin; Z79.891 Long term (current) use of opiate analgesic
CPT/HCPCS: 71045; 80053; 81003; 81015; 82553; 83605; 84484; 85025; 87040; 93005; 94640; 96360